=== PATIENT | male | born 1955 | race Caucasian/White ===

== ENCOUNTER 2018-12-23 06:14 | Day surgery (SDC) | payer BC ==
[~2018-12-23] VITALS: Ht 170.2 cm; Wt 104.8 kg
[2018-12-23 06:50] VITALS: Ht 170.2 cm; Wt 104.8 kg
[2018-12-23] MEDS ORDERED: ATORVASTATIN (07:00)
[2018-12-23 07:33] VITALS: BP 113/73; PULSE 64; RESP 18
[2018-12-23] MEDS ORDERED: MIDAZOLAM 1 MG/ML 2 ML INJ ONE (07:57)
[2018-12-23] MEDS ORDERED: FENTAnyl 50 MCG/ML VIAL ONE (07:57)
[2018-12-23] MEDS ORDERED: PROPOFOL 20 ML ONE (07:57)
[2018-12-23] MEDS ORDERED: LIDOCAINE 4% SOLUTION 50 ML BTL ONE (07:58)
[2018-12-23] MEDS ORDERED: ETOMIDATE 20 MG INJ ONE (07:58)
--- NOTE | 2018-12-23 08:14 | PREAC ---
Date/Time of Note Date/Time of Note DATE: 12/23/18 TIME: 08:12 Anesthesia Eval and Record Evaluation Time Pre-Procedure Interview DATE: 12/23/18 TIME: 08:12 Age 63 Sex male NPO: 8 hrs Preoperative diagnosis dyspepsia and screening Planned procedure egd and colonoscopy Past Medical History Past Medical History: Includes Cardio: Dyslipidemia Pulm: Sleep Apnea (likely, undiagnosed ) GI: Obesity Psych: Depression, Anxiety Surgery & Anesthesia Issues No known issue Meds Anticoagulation: No Beta Martha within 24 hr: No Reason Beta Martha not given: Pt. not on B-Martha Reported Medications [Atorvastatin] No Conflict Check 12/23/18 Meds reviewed: Yes Allergies Coded Allergies: No Known Allergy (Unverified , 12/23/18) Allergies Reviewed: Yes Labs/Studies Labs Reviewed: Reviewed by anesthesiologist test: N/A Pre-procedure Exam Last vitals Vital Signs Date Temp Pulse Resp B/P (MAP) Pulse Ox O2 O2 Flow FiO2 Time Delivery Rate 12/23/18 97.5 64 18 113/73 94 Room Air 07:33 (86) Airway: Adequate mouth opening, Adequate thyromental dist Mallampati: Mallampati IV Teeth: Normal Lung: Normal Heart: Normal ASA Physical Status ASA physical status: 2 Emergency: None Pre-operative Attestations Prior to commencing anesthesia and surgery, the patient was re-evaluated, there was verification of: *The patient's identity *The results of appropriate recent lab work and preoperative vital signs *The above evaluation not changing prior to induction *Anesthetic plan, risk benefits, alternative and complications discussed with patient/family; questions answered; patient/family understands, accepts and wish es to proceed. DENISSE LUNA DO Dec 23, 2018 08:14
--- NOTE | 2018-12-23 08:25 | PAC ---
Date/Time of Note Date/Time of Note DATE: 12/23/18 TIME: 08:25 Post-Anesthesia Notes Post-Anesthesia Note Last documented vital signs Vital Signs Date Temp Pulse Resp B/P (MAP) Pulse Ox O2 O2 Flow FiO2 Time Delivery Rate 12/23/18 98 69 18 110/65 97 0825 Activity: WNL Respiratory function: WNL Cardiovascular function: WNL Mental status: Baseline Pain reasonably controlled: Yes Hydration appropriate: Yes Nausea/Vomiting absent: Yes DENISSE LUNA DO Dec 23, 2018 08:25
[2018-12-23 08:54] VITALS: BP 119/79; PULSE 60; RESP 18
== END 2018-12-23 11:45 | disposition home or self-care (01) ==
LOC: GIL 06:14
PROVIDERS: ATTEND Internal Medicine Gastroenterology
DX: Z12.11 Encounter for screening for malignant neoplasm of colon (principal); K29.50 Unspecified chronic gastritis without bleeding; E78.5 Hyperlipidemia, unspecified
CPT/HCPCS: 43239; 45378; 88305; 88312; J2250; J3010; Z7610